=== PATIENT | female | born 1940 ===

== ENCOUNTER 2021-01-09 05:15 | Day surgery (SDC) | payer OTHER ==
[~2021-01-09 05:15] MED LIST: ACID REDUCER20 M1 PO; ATORVASTATIN CA10 MG PO; IRBESARTAN75 MG PO; VITAMIN B PO; VITAMIN C PO
== END 2021-01-09 16:50 | disposition home or self-care (01) ==
LOC: CIR.AMB 05:15
PROVIDERS: ATTEND Surgery Surgery of the Hand
DX: M65.841 Other synovitis and tenosynovitis, right hand (principal); Z20.822 Contact with and (suspected) exposure to COVID-19

== ENCOUNTER 2022-07-14 15:23 | Emergency (ER) | payer OTHER ==
[~2022-07-14] VITALS: Ht 152.4 cm; Wt 60.8 kg
[2022-07-14] MEDS ORDERED: DICLOFENAC SODI75 MG PO (19:02)
== END 2022-07-14 19:24 | disposition home or self-care (01) ==
LOC: ER 15:23
DX: S01.81XA Laceration without foreign body of other part of head, initial encounter (principal); S60.222A Contusion of left hand, initial encounter; W19.XXXA Unspecified fall, initial encounter; Y93.9 Activity, unspecified; Y92.89 Other specified places as the place of occurrence of the external cause; Y99.9 Unspecified external cause status; I10 Essential (primary) hypertension

== ENCOUNTER 2022-08-07 06:09 | Outpatient (CLI) | payer OTHER ==
[~2022-08-07 06:09] MED LIST changes: +DICLOFENAC SODI75 MG PO
== END 2022-08-07 06:10 | disposition home or self-care (01) ==
LOC: LAB 06:09
PROVIDERS: ATTEND Internal Medicine Hematology & Oncology
DX: D50.8 Other iron deficiency anemias (principal); R79.9 Abnormal finding of blood chemistry, unspecified; I10 Essential (primary) hypertension; R74.02 Elevation of levels of lactic acid dehydrogenase [LDH]; K76.89 Other specified diseases of liver; D51.3 Other dietary vitamin B12 deficiency anemia; D69.59 Other secondary thrombocytopenia; E78.2 Mixed hyperlipidemia

== ENCOUNTER 2023-03-13 06:52 | Outpatient (CLI) | payer OTHER ==
[2023-03-13 08:16] LABS: HEMATOCRIT 31.8 % (36.0-45.00); HEMOGLOBIN 11.8 g/dL (12.0-15.00); MEAN CELL VOLUME 92.1 fL (80.00-100.00); MEAN CORPUSCULAR HEMOGLOBIN 34.2 pg (27.00-32.0); MEAN CORPUSCULAR HGB CONC 37.2 g/dl (32.0-36.0); PLATELET COUNT 161 K/uL (150-450); RED BLOOD COUNT 3.45 M/uL (4.00-6.00); RED CELL DISTRIBUTION WIDTH 14.2 % (11.5-14.5)
[2023-03-13 08:45] LABS: ALBUMIN 3.9 gm/dL (3.4-5.0); BILIRUBIN TOTAL 0.48 mg/dL (0.3-1.2); CALCIUM 8.4 mg/dL (8.5-10.1); CREATININE SERUM 1.04 mg/dL (0.55-1.02); GFR 50.61; GLOBULINA 3.7 G/DL (2.4-3.5); POTASSIUM 4.19 mEq/L (3.5-5.1); TOTAL PROTEIN 7.6 gm/dL (6.4-8.2)
[2023-03-13 11:20] LABS: FOLIC ACID > 20.00 ng/ml (4.78-20)
[2023-03-14 09:08] LABS: CA 125 22.7 U/mL (0.0-38.1); CA 15-3 11.4 U/mL (0.0-25.0)
== END 2023-03-13 06:53 | disposition home or self-care (01) ==
LOC: LAB 06:52
PROVIDERS: ATTEND Internal Medicine Hematology & Oncology
DX: D50.8 Other iron deficiency anemias (principal); D51.3 Other dietary vitamin B12 deficiency anemia; D69.59 Other secondary thrombocytopenia; I10 Essential (primary) hypertension; E78.2 Mixed hyperlipidemia

== ENCOUNTER 2023-07-09 15:34 | Inpatient (IN) | payer OTHER ==
[~2023-07-09] VITALS: Ht 121.9 cm; Wt 58.5 kg
[2023-07-09 17:57] LABS: URINE APPEARANCE Turbid; URINE BILIRRUBIN Moderate (NEGATIVE); URINE BLOOD Negative; URINE COLOR Dark Yellow; URINE GLUCOSE Negative (NEGATIVE); URINE LEUKOCYTE Small; URINE NITRATE Positive
[2023-07-09 18:01] LABS: URINE BACTERIA 1571.1 uL (0.0-1933); URINE EPITHELIAL CELLS 26.1 uL (0.0-38.8); URINE RBC 47.7 uL (0.0-20.8); URINE WBC 68.4 uL (0.0-23.2)
[2023-07-09 18:17] LABS: URINE PROTEIN 100 (NEGATIVE)
[2023-07-09 18:18] LABS: URINE CRYSTALS MANY /HPF; URINE MUCUS SCANT
[2023-07-09 19:25] LABS: ALBUMIN 4.4 gm/dL (3.4-5.0); BILIRUBIN TOTAL 1.33 mg/dL (0.3-1.2); CALCIUM 9.5 mg/dL (8.5-10.1); CREATININE SERUM 1.79 mg/dL (0.55-1.02); GFR 27.04; GLOBULINA 3.7 G/DL (2.4-3.5); POTASSIUM 3.53 mEq/L (3.5-5.1); TOTAL PROTEIN 8.1 gm/dL (6.4-8.2)
[2023-07-09 19:27] LABS: HEMATOCRIT 40.6 % (36.0-45.00); MEAN CELL VOLUME 87.7 fL (80.00-100.00); MEAN CORPUSCULAR HEMOGLOBIN 29.8 pg (27.00-32.0); RED BLOOD COUNT 4.63 M/uL (4.00-6.00)
[2023-07-09 19:28] LABS: MEAN CORPUSCULAR HGB CONC 33.9 g/dl (32.0-36.0); PLATELET COUNT 143 K/uL (150-450); RED CELL DISTRIBUTION WIDTH 14.2 % (11.5-14.5)
[2023-07-09 19:32] LABS: HEMOGLOBIN 13.8 g/dL (12.0-15.00)
[2023-07-09 23:30] LABS: INR 1.04; PARTIAL THROMBOPLASTIN TIME 26.1 SECONDS (22.0-34.0); PROTHROMBIN TIME 10.9 SECONDS (9.0-11.5)
[2023-07-10 00:06] LABS: MAGNESIUM 2.5 mg/dL (1.8-2.4); PHOSPHOROUS 5.6 mg/dL (2.5-4.9)
[2023-07-10 03:07] LABS: FECAL LEUKOCYTES NEGATIVE (NEGATIVE)
[2023-07-10 06:39] LABS: ABG PH 7.497 (7.35-7.45); ABG PO2 98.4 mmHg (80-100); ABG pCO2 25.1 mmHg (35-45); BASE EXCESS -2.3 mmol/l; SaO2 98.2 %; Tco2 19.8 mmol/l; allen test SATISFACTORY; o2 21 %; puncture site RADIAL LEFT
[2023-07-10] MEDS ORDERED: OMEPRAZOLE20 MG (08:45)
[2023-07-10] MEDS ORDERED: ABANEU-SL TABL1 EACH (08:45)
[2023-07-10] MEDS ORDERED: BETHANECHOL CHL50 MG (08:45)
[2023-07-10 18:52] LABS: CALCIUM 8.3 mg/dL (8.5-10.1); CHOL HDL RATIO 1.6 (0-5.0); CREATININE SERUM 1.6 mg/dL (0.55-1.02); GFR 30.78; POTASSIUM 4.61 mEq/L (3.5-5.1)
[2023-07-11 08:29] LABS: ALBUMIN 2.7 gm/dL (3.4-5.0); BILIRUBIN TOTAL 0.62 mg/dL (0.3-1.2); CALCIUM 7.6 mg/dL (8.5-10.1); CREATININE SERUM 1.14 mg/dL (0.55-1.02); GFR 45.52; GLOBULINA 3.3 G/DL (2.4-3.5); MAGNESIUM 2.7 mg/dL (1.8-2.4); PHOSPHOROUS 2.5 mg/dL (2.5-4.9); POTASSIUM 3.73 mEq/L (3.5-5.1)
[2023-07-11 10:40] LABS: HEMATOCRIT 33.7 % (36.0-45.00); HEMOGLOBIN 11.5 g/dL (12.0-15.00); MEAN CELL VOLUME 87.2 fL (80.00-100.00); MEAN CORPUSCULAR HEMOGLOBIN 29.9 pg (27.00-32.0); MEAN CORPUSCULAR HGB CONC 34.3 g/dl (32.0-36.0); RED BLOOD COUNT 3.86 M/uL (4.00-6.00); RED CELL DISTRIBUTION WIDTH 14.4 % (11.5-14.5)
[2023-07-11 12:35] LABS: PLATELET COUNT 113 K/uL (150-450)
[2023-07-13 06:40] LABS: HEMATOCRIT 25.9 % (36.0-45.00); HEMOGLOBIN 10.4 g/dL (12.0-15.00); MEAN CELL VOLUME 91.4 fL (80.00-100.00); MEAN CORPUSCULAR HEMOGLOBIN 36.8 pg (27.00-32.0); MEAN CORPUSCULAR HGB CONC 40.3 g/dl (32.0-36.0); RED BLOOD COUNT 2.83 M/uL (4.00-6.00); RED CELL DISTRIBUTION WIDTH 13.8 % (11.5-14.5)
[2023-07-13 06:53] LABS: PLATELET COUNT 129 K/uL (150-450)
[2023-07-13 07:13] LABS: PARTIAL THROMBOPLASTIN TIME 28.8 SECONDS (22.0-34.0); PROTHROMBIN TIME 10.5 SECONDS (9.0-11.5)
[2023-07-13 07:42] LABS: ALBUMIN 2.5 gm/dL (3.4-5.0); BILIRUBIN TOTAL 0.46 mg/dL (0.3-1.2); BILIRUBIN,CONJUGATED 0.19 mg/dL (0.0-0.2); BILIRUBIN,UNCONJUGATED 0.27 mg/dL (0.0-0.6); CALCIUM 7.1 mg/dL (8.5-10.1); CHOL HDL RATIO 2.3 (0-5.0); CREATININE SERUM 0.68 mg/dL (0.55-1.02); GFR 82.63; GLOBULINA 3.1 G/DL (2.4-3.5); MAGNESIUM 2.3 mg/dL (1.8-2.4); PHOSPHOROUS 2.2 mg/dL (2.5-4.9); POTASSIUM 3.78 mEq/L (3.5-5.1); TOTAL PROTEIN 5.6 gm/dL (6.4-8.2)
[2023-07-13 09:22] LABS: UREA CLEARANCE 50.8 ML/MIN
[2023-07-14 15:59] LABS: MEAN CELL VOLUME 93.4 fL (80.00-100.00); MEAN CORPUSCULAR HEMOGLOBIN 36.1 pg (27.00-32.0); MEAN CORPUSCULAR HGB CONC 38.6 g/dl (32.0-36.0); RED BLOOD COUNT 2.78 M/uL (4.00-6.00); RED CELL DISTRIBUTION WIDTH 14.2 % (11.5-14.5)
[2023-07-14 16:00] LABS: PLATELET COUNT 69 K/uL (150-450)
[2023-07-15 06:45] LABS: CREATININE SERUM 0.59 mg/dL (0.55-1.02); GFR 97.34; POTASSIUM 3.47 mEq/L (3.5-5.1)
[2023-07-15 08:12] LABS: CALCIUM 6.3 mg/dL (8.5-10.1)
[2023-07-15 08:30] LABS: HEMATOCRIT 27.7 % (36.0-45.00); MEAN CELL VOLUME 86.5 fL (80.00-100.00); MEAN CORPUSCULAR HGB CONC 34.2 g/dl (32.0-36.0); PLATELET COUNT 148 K/uL (150-450); RED CELL DISTRIBUTION WIDTH 14.2 % (11.5-14.5)
[2023-07-15 08:34] LABS: HEMOGLOBIN 9.4 g/dL (12.0-15.00); MEAN CORPUSCULAR HEMOGLOBIN 29.3 pg (27.00-32.0)
[2023-07-16 11:14] LABS: ABG PH 7.455 (7.35-7.45); ABG PO2 72.6 mmHg (80-100); ABG pCO2 24.3 mmHg (35-45); BASE EXCESS -5.1 mmol/l; BICARBONATE 16.7 mmol/l (23-25); Tco2 17.5 mmol/l
[2023-07-16 11:15] LABS: allen test SATISFACTORY; o2 21 %; puncture site RADIAL LEFT
[2023-07-16 12:42] LABS: ALBUMIN 2.2 gm/dL (3.4-5.0); BILIRUBIN TOTAL 0.66 mg/dL (0.3-1.2); CREATININE SERUM 0.74 mg/dL (0.55-1.02); GFR 74.95; POTASSIUM 3.2 mEq/L (3.5-5.1); TOTAL PROTEIN 5.2 gm/dL (6.4-8.2)
[2023-07-16 13:04] LABS: CALCIUM 6.5 mg/dL (8.5-10.1)
[2023-07-17 07:25] LABS: ALBUMIN 2.4 gm/dL (3.4-5.0); BILIRUBIN TOTAL 0.65 mg/dL (0.3-1.2); CALCIUM 6.9 mg/dL (8.5-10.1); CREATININE SERUM 0.69 mg/dL (0.55-1.02); GFR 81.25; GLOBULINA 3.4 G/DL (2.4-3.5); POTASSIUM 3.57 mEq/L (3.5-5.1); TOTAL PROTEIN 5.8 gm/dL (6.4-8.2)
[2023-07-17 12:08] LABS: campy Final report (.)
[2023-07-18 08:13] LABS: HEMATOCRIT 28.1 % (36.0-45.00); MEAN CORPUSCULAR HGB CONC 34.9 g/dl (32.0-36.0); PLATELET COUNT 235 K/uL (150-450); RED BLOOD COUNT 3.31 M/uL (4.00-6.00); RED CELL DISTRIBUTION WIDTH 14.4 % (11.5-14.5)
[2023-07-18 09:18] LABS: HEMOGLOBIN 9.8 g/dL (12.0-15.00); MEAN CORPUSCULAR HEMOGLOBIN 29.6 pg (27.00-32.0)
[2023-07-20 07:03] LABS: ALBUMIN 2.6 gm/dL (3.4-5.0); CALCIUM 6.8 mg/dL (8.5-10.1); CREATININE SERUM 0.6 mg/dL (0.55-1.02); GFR 95.47; MAGNESIUM 1.9 mg/dL (1.8-2.4); POTASSIUM 3.32 mEq/L (3.5-5.1)
[2023-07-20 07:17] LABS: PHOSPHOROUS 1.4 mg/dL (2.5-4.9)
[2023-07-20 07:23] LABS: HEMATOCRIT 30.5 % (36.0-45.00); HEMOGLOBIN 10.8 g/dL (12.0-15.00); MEAN CELL VOLUME 84.6 fL (80.00-100.00); MEAN CORPUSCULAR HEMOGLOBIN 29.9 pg (27.00-32.0); MEAN CORPUSCULAR HGB CONC 35.3 g/dl (32.0-36.0); PLATELET COUNT 282 K/uL (150-450); RED BLOOD COUNT 3.61 M/uL (4.00-6.00); RED CELL DISTRIBUTION WIDTH 14.3 % (11.5-14.5)
[2023-07-22 05:02] LABS: ALBUMIN 2.4 gm/dL (3.4-5.0); CALCIUM 7.7 mg/dL (8.5-10.1); CREATININE SERUM 0.74 mg/dL (0.55-1.02); GFR 74.95; MAGNESIUM 2.2 mg/dL (1.8-2.4); POTASSIUM 3.06 mEq/L (3.5-5.1)
[2023-07-22 05:49] LABS: PHOSPHOROUS 1.9 mg/dL (2.5-4.9)
[2023-07-23 05:23] LABS: HEMATOCRIT 30.9 % (36.0-45.00); MEAN CORPUSCULAR HEMOGLOBIN 31.9 pg (27.00-32.0); MEAN CORPUSCULAR HGB CONC 36.3 g/dl (32.0-36.0); PLATELET COUNT 326 K/uL (150-450); RED BLOOD COUNT 3.51 M/uL (4.00-6.00); RED CELL DISTRIBUTION WIDTH 14.9 % (11.5-14.5)
[2023-07-23 05:26] LABS: HEMOGLOBIN 11.2 g/dL (12.0-15.00)
[2023-07-23] MEDS ORDERED: BETHANECHOL CHL50 MG PO (08:31)
[2023-07-23] MEDS ORDERED: ATORVASTATIN CA10 MG PO (08:32)
[2023-07-23] MEDS ORDERED: FAMOTIDINE20 MG PO (08:32)
[2023-07-23] MEDS ORDERED: COZAAR50 MG PO (08:32)
[2023-07-23] MEDS ORDERED: INTESTINEX680 M1 PO (08:32)
[2023-07-23] MEDS ORDERED: PROTEINEX-18 LI30 ML PO (08:33)
[2023-07-23] MEDS ORDERED: ABANEU-SL TABL1 EACH SL (08:33)
[2023-07-23] MEDS ORDERED: FUSION PLUS CA1 EACH PO (08:33)
== END 2023-07-23 20:30 | disposition home or self-care (01) | DRG 392 ==
LOC: ER 15:34 → MEDI 21:52
PROVIDERS: General Practice; Internal Medicine; Internal Medicine Infectious Disease; Internal Medicine Nephrology; ADMIT Internal Medicine; ATTEND Internal Medicine
PROC: BW21ZZZ Computerized Tomography (CT Scan) of Abdomen and Pelvis (ICD-10-PCS; principal; 2023-07-09)
PROC: BW21ZZZ Computerized Tomography (CT Scan) of Abdomen and Pelvis (ICD-10-PCS; 2023-07-14)
PROC: BW21YZZ Computerized Tomography (CT Scan) of Abdomen and Pelvis using Other Contrast (ICD-10-PCS; 2023-07-16)
DX: K52.89 Other specified noninfective gastroenteritis and colitis (principal); N17.8 Other acute kidney failure; N39.0 Urinary tract infection, site not specified; J90 Pleural effusion, not elsewhere classified; N18.9 Chronic kidney disease, unspecified; E86.0 Dehydration

== ENCOUNTER 2023-09-15 06:38 | Outpatient (CLI) | payer OTHER ==
[~2023-09-15 06:38] MED LIST changes: +ABANEU-SL TABL1 EACH; +ABANEU-SL TABL1 EACH SL; +BETHANECHOL CHL50 MG; +BETHANECHOL CHL50 MG PO; +COZAAR50 MG PO; +FAMOTIDINE20 MG PO; +FUSION PLUS CA1 EACH PO; +INTESTINEX680 M1 PO; +OMEPRAZOLE20 MG; +PROTEINEX-18 LI30 ML PO
[2023-09-15 08:59] LABS: HEMATOCRIT 32.5 % (36.0-45.00); MEAN CELL VOLUME 85.4 fL (80.00-100.00); MEAN CORPUSCULAR HEMOGLOBIN 28.8 pg (27.00-32.0); MEAN CORPUSCULAR HGB CONC 33.7 g/dl (32.0-36.0); PLATELET COUNT 192 K/uL (150-450); RED BLOOD COUNT 3.81 M/uL (4.00-6.00); RED CELL DISTRIBUTION WIDTH 15.1 % (11.5-14.5)
[2023-09-15 09:01] LABS: % SATURACION 14.2 % (15-50); ALBUMIN 3.7 gm/dL (3.4-5.0); BILIRUBIN TOTAL 0.51 mg/dL (0.3-1.2); CALCIUM 9.1 mg/dL (8.5-10.1); CREATININE SERUM 1.05 mg/dL (0.55-1.02); GFR 49.93; GLOBULINA 4.2 G/DL (2.4-3.5); POTASSIUM 3.94 mEq/L (3.5-5.1); TOTAL PROTEIN 7.9 gm/dL (6.4-8.2)
[2023-09-15 13:35] LABS: FOLIC ACID 15.66 ng/ml (4.78-20)
[2023-09-15 14:25] LABS: MANUAL PLATELET COUNT 230
[2023-09-15 14:29] LABS: PLATELET ESTIMATE NORMAL (NORMAL)
[2023-09-16 11:12] LABS: CA 125 21.4 U/mL (0.0-38.1); CA 15-3 11.4 U/mL (0.0-25.0)
== END 2023-09-15 15:09 | disposition home or self-care (01) ==
LOC: LAB 06:38
PROVIDERS: ATTEND Internal Medicine Hematology & Oncology
DX: D50.8 Other iron deficiency anemias (principal); R79.9 Abnormal finding of blood chemistry, unspecified; I10 Essential (primary) hypertension; R74.02 Elevation of levels of lactic acid dehydrogenase [LDH]; K76.89 Other specified diseases of liver; E21.0 Primary hyperparathyroidism; C50.919 Malignant neoplasm of unspecified site of unspecified female breast; C25.9 Malignant neoplasm of pancreas, unspecified; R97.8 Other abnormal tumor markers; C56.9 Malignant neoplasm of unspecified ovary; R97.1 Elevated cancer antigen 125 [CA 125]; R97.0 Elevated carcinoembryonic antigen [CEA]; D51.3 Other dietary vitamin B12 deficiency anemia; D69.59 Other secondary thrombocytopenia; E78.2 Mixed hyperlipidemia

== ENCOUNTER 2024-02-09 07:30 | Outpatient (CLI) | payer OTHER | END 2024-02-09 07:39 | disposition home or self-care (01) | LOC: TOM 07:30 | PROVIDERS: ATTEND Internal Medicine Gastroenterology | DX: K57.30 Diverticulosis of large intestine without perforation or abscess without bleeding (principal); K56.600 Partial intestinal obstruction, unspecified as to cause ==

== ENCOUNTER 2024-03-04 06:44 | Outpatient (CLI) | payer OTHER ==
[2024-03-04 07:25] LABS: HEMATOCRIT 34.5 % (36.0-45.00); HEMOGLOBIN 11.9 g/dL (12.0-15.00); MEAN CELL VOLUME 90.3 fL (80.00-100.00); MEAN CORPUSCULAR HGB CONC 34.4 g/dl (32.0-36.0); RED BLOOD COUNT 3.82 M/uL (4.00-6.00); RED CELL DISTRIBUTION WIDTH 13.3 % (11.5-14.5)
[2024-03-04 07:26] LABS: PLATELET COUNT 142 K/uL (150-450)
[2024-03-04 08:32] LABS: % SATURACION 23.2 % (15-50); ALBUMIN 4.1 gm/dL (3.4-5.0); BILIRUBIN TOTAL 0.67 mg/dL (0.3-1.2); CREATININE SERUM 1.15 mg/dL (0.55-1.02); FERRITIN 73.3 NG/ML (8-252); GFR 44.95; GLOBULINA 4.1 G/DL (2.4-3.5); POTASSIUM 4.37 mEq/L (3.5-5.1); TOTAL PROTEIN 8.2 gm/dL (6.4-8.2)
[2024-03-04 12:36] LABS: FOLIC ACID 19.03 ng/ml (4.78-20)
[2024-03-05 09:14] LABS: CA 125 19.5 U/mL (0.0-38.1); CA 15-3 12.4 U/mL (0.0-25.0)
[2024-03-07 09:56] LABS: MANUAL PLATELET COUNT 208
[2024-03-07 09:57] LABS: PLATELET ESTIMATE NORMAL (NORMAL)
== END 2024-03-04 06:46 | disposition home or self-care (01) ==
LOC: LAB 06:44
PROVIDERS: ATTEND Internal Medicine Hematology & Oncology
DX: D50.8 Other iron deficiency anemias (principal); D51.3 Other dietary vitamin B12 deficiency anemia; D69.59 Other secondary thrombocytopenia; I10 Essential (primary) hypertension; E78.2 Mixed hyperlipidemia; K52.3 Indeterminate colitis; R79.9 Abnormal finding of blood chemistry, unspecified; R74.02 Elevation of levels of lactic acid dehydrogenase [LDH]; K76.89 Other specified diseases of liver; C50.919 Malignant neoplasm of unspecified site of unspecified female breast; R97.0 Elevated carcinoembryonic antigen [CEA]

== ENCOUNTER 2024-04-13 07:31 | Outpatient (CLI) | payer OTHER | END 2024-04-13 07:32 | disposition home or self-care (01) | LOC: NUCLEAR 07:31 | PROVIDERS: ATTEND Internal Medicine Hematology & Oncology | DX: C18.5 Malignant neoplasm of splenic flexure (principal) | CPT/HCPCS: 78816; A9552 ==

== ENCOUNTER 2024-12-15 07:24 | Outpatient (CLI) | payer OTHER | END 2024-12-15 07:30 | disposition home or self-care (01) | LOC: TOM 07:24 | PROVIDERS: ATTEND Internal Medicine Hematology & Oncology | DX: D50.9 Iron deficiency anemia, unspecified (principal); D51.3 Other dietary vitamin B12 deficiency anemia; D69.59 Other secondary thrombocytopenia; I10 Essential (primary) hypertension; E78.2 Mixed hyperlipidemia; K52.3 Indeterminate colitis; R97.0 Elevated carcinoembryonic antigen [CEA] ==